=== PATIENT | female | born 1970 | race Caucasian/White ===

== ENCOUNTER 2016-04-20 21:24 | Emergency (ER) | payer BC ==
[2016-04-20 21:33] VITALS: TEMP 97.7
[2016-04-20] MEDS ORDERED: SODIUM CHLORIDE 0.9% 1,000 ML IV STA (21:44)
[2016-04-20] MEDS ORDERED: METOCLOPRAMIDE 5 MG/ML 2 ML VIAL IVP STA (21:44)
[2016-04-20] MEDS ORDERED: diphenhydrAMINE 50 MG/ML 1 ML VIAL IVP STA (21:44)
--- NOTE | 2016-04-20 21:45 | ED ---
Headache HPI - General Chief Complaint: Headache Stated Complaint: headache Time Seen by Provider: 04/20/16 21:36 Source: RN notes reviewed Mode of arrival: ambulatory Limitations: no limitations - History of Present Illness Initial Comments: 45-year-old female presents to the emergency department with a chief complaint of right-sided headache. Patient has a chronic headache she's had multiple MRI seen multiple specialists for headache. Patient states that she currently is out of her headache medication because she ran out and is unable to pay her balance to her doctor so he will not refill it. Patient states she just needs her headache improved and she just needs some refills of her medicine because she is unable to get them. Patient states she has a headache fever or chills. Patient states that like her chronic headache. Patient states that she has no other complaint at this time. Patient denies any recent fever, chills, shortness of breath, chest pain, back pain, abdominal pain, nausea vomiting, numbness or tingling, dysuria or hematuria, constipation or diarrhea, visual changes, or any other current symptoms. - Related Data Previous Rx's Medication Instructions Recorded Gabapentin [Neurontin] 300 mg PO BID #10 cap 04/20/16 Propranolol [Inderal] 20 mg PO TID #10 tab 04/20/16 SUMAtriptan SUCCINATE [Imitrex] 100 mg PO BID PRN #10 tablet 04/20/16 traMADol HCL [Ultram] 50 mg PO BID PRN #10 tablet 04/20/16 Allergies Allergy/AdvReac Type Severity Reaction Status Date / Time Sulfa (Sulfonamide Allergy Unknown Verified 04/20/16 21:39 Antibiotics) Childhood Review of Systems ROS Statement: Those systems with pertinent positive or pertinent negative responses have been documented in the HPI. ROS Other: All systems not noted in ROS Statement are negative. Past Medical History Additional Past Medical History / Comment(s): STATES WAS TOLD HAD SEIZURE CHILD, NOT SURE IF THEY WERE FEBRILE OR NOT. LIPOMA ON BACK History of Any Multi-Drug Resistant Organisms: None Reported Past Surgical History: Hysterectomy, Orthopedic Surgery Additional Past Surgical History / Comment(s): LEFT HAND SX Past Anesthesia/Blood Transfusion Reactions: No Reported Reaction Past Psychological History: Anxiety, Depression, Panic Disorder Smoking Status: Current every day smoker Past Alcohol Use History: None Reported Past Drug Use History: None Reported - Past Family History Mother Family Medical History: Deep Vein Thrombosis (DVT), Pulmonary Embolus Father Family Medical History: Cancer General Exam - General Exam Comments Initial Comments: General: The patient is awake and alert, in no distress, and does not appear acutely ill. Eye: Pupils are equal, round and reactive to light, extra-ocular movements are intact; there is normal conjunctiva bilaterally. No signs of icterus. Ears, nose, mouth and throat: There are moist mucous membranes and no oral lesions. Neck: The neck is supple, there is no tenderness. Cardiovascular: There is a regular rate and rhythm. No murmur, rub or gallop is appreciated. Respiratory: Lungs are clear to auscultation, respirations are non-labored, breath sounds are equal. No wheezes, stridor, rales, or rhonchi. Gastrointestinal: Soft, non-distended, non-tender abdomen without masses or organomegaly noted. There is no rebound or guarding present. No CVA tenderness. Bowel sounds are unremarkable. Back: There is no tenderness to palpation in the midline. There is no obvious deformity. No rashes noted. Musculoskeletal: Normal ROM, no tenderness, There is no pedal edema. There is no calf tenderness or swelling. Sensation intact. Pulses equal bilaterally 2+. Neurological: CN II-XII intact, There are no obvious motor or sensory deficits. Coordination appears grossly intact. Speech is normal. Skin: Skin is warm and dry and no rashes or lesions are noted. Psychiatric: Cooperative, appropriate mood & affect, normal judgment. Limitations: no limitations Course Vital Signs 04/20/16 21:30 Temperature 97.7 F Pulse Rate 67 Respiratory 20 Rate Blood Pressure 136/80 O2 Sat by Pulse 97 Oximetry Medical Decision Making - Medical Decision Making 45-year-old female presents to emergency Department chief complaint of headache. Patient is feeling better at this time. At this time we discussed that we will give her a short supply of her home medications. We did discuss follow-up with the doctor and return parameters. Patient is in agreement with this plan. All her questions have been answered. Patient will be discharged home. Disposition Clinical Impression: Headache Disposition: HOME SELF-CARE Condition: Stable Instructions: Acute Headache (ED) Additional Instructions: Please use medication as discussed. Please follow up with family doctor if symptoms have not improved over the next two days. Please return to the emergency room if your symptoms increase or worsen or for any other concerns. Prescriptions: Gabapentin [Neurontin] 300 mg PO BID #10 cap Propranolol [Inderal] 20 mg PO TID #10 tab SUMAtriptan SUCCINATE [Imitrex] 100 mg PO BID PRN #10 tablet PRN Reason: Migraine Headache traMADol HCL [Ultram] 50 mg PO BID PRN #10 tablet PRN Reason: Pain Referrals: Jackie Troncoso III, MD [Primary Care Provider] - 1-2 days Time of Disposition: 22:34
[2016-04-20 22:40] VITALS: BP 129/73; PULSE 64; RESP 16
== END 2016-04-20 22:44 | disposition home or self-care (01) ==
LOC: EC 21:24
DX: R51 Headache (principal); Z88.2 Allergy status to sulfonamides; Z79.899 Other long term (current) drug therapy; F17.200 Nicotine dependence, unspecified, uncomplicated; Z76.0 Encounter for issue of repeat prescription
CPT/HCPCS: 99283; 96374; 96375; 96361; J1200; J2765

== ENCOUNTER → 2016-05-04 | Outpatient (CLI) | payer BC ==
--- NOTE | 2016-05-04 11:19 | MR ---
MRI of the brain with and without contrast HISTORY: Headaches. TECHNIQUE: T1-weighted sagittal, T2, FLAIR, and diffusion axial, postcontrast T1 axial and coronal vi ews of the brain are submitted. CONTRAST: 15 mL MultiHance COMPARISON: 01/14/2015 FINDINGS: There is no evidence of acute ischemia. The ventricles, basal cisterns, and sulci overlying the co nvexities are consistent with the patient's age. There is no mass effect or enhancing mass. Craniocervical junction maintained. Sella turcica has a normal appearance. No cerebellopontine angle mass. Orbits have a normal appearance. There is normal enhancement of the vasculature including the dural v enous sinuses. There is mild chronic mastoiditis and sinusitis. WHITE MATTER: There are approximately 65-70 areas of focal abnormal signal scattered throughout the white matter of both cerebral hemispheres. Largest lesion measures approximately 7 mm in the right periatrial region . There are no enhancing lesions. There are no callosal lesions. No interval change in size or morphology or number from the previous exam. IMPRESSION: 1. No acute intracranial process. 2. Diffuse white matter changes are stable in size, number and morphology from the previous exam with no enhancing lesions. Findings are nonspecific could be seen with demyelinating process including a mass, Lyme's disease, vasculitis, sarcoidosis, or remote microvascular ischemia.
== END | disposition home or self-care (01) ==
LOC: RADMRIMAIN 09:56
PROVIDERS: ATTEND Family Medicine
DX: R90.89 Other abnormal findings on diagnostic imaging of central nervous system (principal)
CPT/HCPCS: 70553; A9577

== ENCOUNTER → 2016-05-05 | Outpatient (CLI) | payer BC ==
--- NOTE | 2016-05-05 19:47 | MR ---
Cervical and lumbar MRI with and without contrast HISTORY: Headaches, family history of multiple sclerosis, abnormal brain MRI Multiplanar multisequence and postcontrast images obtained through the cervical and lumbar spine foll owing 15 cc MultiHance IV Correlation to brain MRI 04 May 2016 Cervical spine MRI: Cervical vertebral bodies show preserved height, alignment, and bone marrow signa l. Cervical cord signal is maintained. Spondylosis is present at C6-7 with associated loss of disc he ight and signal, endplate discogenic marrow signal change and posterior extension of endplate disc co mplex causing anterior mass effect on the thecal sac and mild central canal stenosis. Uncovertebral j oint hypertrophy, facet arthropathy results in bilateral foraminal encroachment, correlate for right and left C7 radiculopathy. Nerve sheath diverticulum present on the left at C7-T1. There is no abnormal enhancement following contrast administration. IMPRESSION: Degenerative disc disease C6-7 Lumbar MRI: The conus is at T12-L1 shows an unremarkable appearance. There is no significant central canal stenosis, foraminal encroachment, or sizable disc herniation. There is a small posterior broad- based disc bulge present at T11-12 causing some anterior mass effect on the anterior thecal sac and p ossibly some contact with the distal cervical cord. Cortical cysts are noted incidentally within the kidneys. Hemangioma present within the T12 vertebral body. Facet arthropathy change present at L5-S1, L4-5 with hypertrophy of the ligamentum flavum causing rachid e posterior lateral mass effect on the thecal sac. There is no evident disc herniation. No abnormal e nhancement following contrast administration. IMPRESSION: Degenerative disc disease at the lower thoracic spine, facet arthropathy in the lower lum bar spine. Additional findings above.
== END | disposition home or self-care (01) ==
LOC: RADMRIMAIN 17:52
PROVIDERS: ATTEND Family Medicine
DX: M50.323 Other cervical disc degeneration at C6-C7 level (principal); M51.34 Other intervertebral disc degeneration, thoracic region; M46.96 Unspecified inflammatory spondylopathy, lumbar region
CPT/HCPCS: 72156; 72158; A9577

== ENCOUNTER → 2016-05-14 | Outpatient (CLI) | payer BC ==
--- NOTE | 2016-05-15 11:37 | MR ---
MR thoracic spine with and without contrast HISTORY: Family history of multiple sclerosis, back pain Multiplanar multisequence and postcontrast images through the thoracic spine following 16 cc MultiHan ce IV No comparisons Thoracic vertebral bodies show preserved height, alignment, and there is multilevel endplate discogen ic marrow signal change, endplate spondylosis with associated loss of disc height and signal is great est at the midthoracic spine. Thoracic cord signal is normal. Degenerative disc disease seen in the l ower cervical spine. Posterior extension of endplate disc complex at C6-7 causes mild central canal s tenosis, possibly anterior mass effect on the thecal sac and contact with the anterior cervical cord. No significant abnormal enhancement. Multiple cortical cysts associated with the kidneys. Suspect a hiatal hernia. T5-6 shows a central disc herniation posteriorly contacting the anterior thoracic cord. Question abno rmal soft tissue at the level of the left adrenal gland. T6-7: Right posterior paracentral disc herniation contacts the anterolateral thoracic cord. T7-8: Right posterior paracentral disc herniation causes mass effect on the anterior thoracic cord. T here is facet arthropathy. T11-T12: Left posterior paracentral disc herniation causes anterolateral mass effect on the thecal sa c IMPRESSION: Degenerative disc disease as described. Question left adrenal mass, consider dedicated im aging. Additional findings above.
== END | disposition home or self-care (01) ==
LOC: RADMRIMAIN 16:41
PROVIDERS: ATTEND Family Medicine
DX: M51.34 Other intervertebral disc degeneration, thoracic region (principal); Z82.69 Family history of other diseases of the musculoskeletal system and connective tissue
CPT/HCPCS: 72157; A9577

== ENCOUNTER → 2016-06-16 | Outpatient (CLI) | payer BC ==
[2016-06-16 17:57] LABS: Treponemal Ab Non-Reactive (Non-Reactive)
[2016-06-17 05:26] LABS: Complement Total (CH50) 183 CAE (54-144)
[2016-06-17 05:31] LABS: Lyme Antibodies Total(IgG/IgM) 0.02 (<0.90)
== END | disposition home or self-care (01) ==
LOC: LABWHC1 08:08
PROVIDERS: ATTEND Psychiatry & Neurology Neurology
DX: G37.9 Demyelinating disease of central nervous system, unspecified (principal)
CPT/HCPCS: 36415; 81241; 81291; 82164; 82607; 82746; 83090; 84207; 84439; 84443; 86160; 86162; 86235; 86618; 86780

== ENCOUNTER 2016-09-24 16:44 | Emergency (ER) | payer BC ==
[2016-09-24 17:02] VITALS: RESP 18
--- NOTE | 2016-09-24 17:41 | XR ---
EXAMINATION TYPE: XR knee complete LT DATE OF EXAM: 09/24/2016 COMPARISON: NONE HISTORY: Knee pain TECHNIQUE: 3 views FINDINGS: I see no fracture nor dislocation. There is a large knee joint effusion. Joint spaces are n ormal. IMPRESSION: Large joint effusion. No fracture seen.
--- NOTE | 2016-09-24 17:47 | ED ---
Lower Extremity Injury HPI - General Chief Complaint: Extremity Injury, Lower Stated Complaint: Knee Injury Time Seen by Provider: 09/24/16 17:03 Source: patient, EMS Mode of arrival: EMS Limitations: no limitations - Related Data Home Medications Medication Instructions Recorded Confirmed Gabapentin [Neurontin] 300 mg PO TID 09/24/16 09/24/16 Nortriptyline [Pamelor] 10 mg PO QID 09/24/16 09/24/16 Propranolol HCl 20 mg PO TID 09/24/16 09/24/16 Propranolol HCl [Propranolol HCl 60 mg PO HS 09/24/16 09/24/16 ER] Previous Rx's Medication Instructions Recorded HYDROcodone/APAP 5-325MG [[place] 1 tab PO Q6HR PRN #15 tab 09/24/16 5-325] Ibuprofen [Motrin] 800 mg PO TID #20 tab 09/24/16 Allergies Allergy/AdvReac Type Severity Reaction Status Date / Time Sulfa (Sulfonamide Allergy Unknown Verified 09/24/16 17:18 Antibiotics) Childhood Review of Systems ROS Statement: Those systems with pertinent positive or pertinent negative responses have been documented in the HPI. ROS Other: All systems not noted in ROS Statement are negative. Past Medical History Additional Past Medical History / Comment(s): STATES WAS TOLD HAD SEIZURE CHILD, NOT SURE IF THEY WERE FEBRILE OR NOT. LIPOMA ON BACK History of Any Multi-Drug Resistant Organisms: None Reported Past Surgical History: Hysterectomy, Orthopedic Surgery Additional Past Surgical History / Comment(s): LEFT HAND SX Past Anesthesia/Blood Transfusion Reactions: No Reported Reaction Past Psychological History: Anxiety, Depression, Panic Disorder Smoking Status: Current every day smoker Past Alcohol Use History: None Reported Past Drug Use History: None Reported - Past Family History Mother Family Medical History: Deep Vein Thrombosis (DVT), Pulmonary Embolus Father Family Medical History: Cancer General Exam Limitations: no limitations Course Vital Signs 09/24/16 16:56 Temperature 99.3 F Pulse Rate 75 Respiratory 18 Rate Blood Pressure 124/58 O2 Sat by Pulse 98 Oximetry Disposition Clinical Impression: Knee sprain Disposition: HOME SELF-CARE Condition: Good Instructions: Knee Sprain (ED) Additional Instructions: advised to follow-up with orthopedic physician. Patient needs to remain in knee immobilizer. Return to the emergency department if any alarming signs or symptoms occur. Prescriptions: HYDROcodone/APAP 5-325MG [[place] 5-325] 1 tab PO Q6HR PRN #15 tab PRN Reason: Pain Ibuprofen [Motrin] 800 mg PO TID #20 tab Referrals: Jackie Troncoso III, MD [Primary Care Provider] - 1-2 days Angel Caldera DO [Doctor of Osteopathic Medicine] - 1-2 days Time of Disposition: 17:46
[2016-09-24] MEDS ORDERED: HYDROcodone/APAP 10-325MG 1 EACH TAB PO ONE (17:48)
[2016-09-24 18:24] VITALS: BP 120/62; PULSE 76; TEMP 98.3
== END 2016-09-24 18:24 | disposition home or self-care (01) ==
LOC: EC 16:44
DX: S83.92XA Sprain of unspecified site of left knee, initial encounter (principal); F32.9 Major depressive disorder, single episode, unspecified; F41.9 Anxiety disorder, unspecified; F17.200 Nicotine dependence, unspecified, uncomplicated; Z79.899 Other long term (current) drug therapy; Z88.2 Allergy status to sulfonamides; Z86.69 Personal history of other diseases of the nervous system and sense organs; W22.8XXA Striking against or struck by other objects, initial encounter; Y93.89 Activity, other specified
CPT/HCPCS: 99283; 73562; L1830

== ENCOUNTER → 2017-02-16 | Outpatient (CLI) | payer BC ==
--- NOTE | 2017-02-16 16:42 | XR ---
EXAMINATION TYPE: XR chest 2V DATE OF EXAM: 02/16/2017 COMPARISON: 08/02/2012 HISTORY: Migraines. Chest pain. TECHNIQUE: Frontal and lateral views of the chest are obtained. FINDINGS: There is no heart failure nor confluent pneumonic infiltrate. Costophrenic angles are sonya r. Thoracic aorta is atheromatous. Bony thorax is intact. IMPRESSION: No active cardiopulmonary disease. No change.
== END | disposition home or self-care (01) ==
LOC: RADXRMAIN 16:14
PROVIDERS: ATTEND Family Medicine
DX: G43.701 Chronic migraine without aura, not intractable, with status migrainosus (principal)
CPT/HCPCS: 71020

== ENCOUNTER → 2017-03-26 | Outpatient (CLI) | payer BC ==
--- NOTE | 2017-03-26 16:24 | US ---
EXAMINATION TYPE: US kidneys/renal and bladder DATE OF EXAM: 03/26/2017 COMPARISON: MRI lumbar spine May 05, 2016 CLINICAL HISTORY: N28.1 Renal cyst. Renal cysts seen on MRI EXAM MEASUREMENTS: Right Kidney: 11.7 x 5.7 x 6.0 cm Left Kidney: 11.4 x 6.7 x 6.3 cm Right Kidney: Mixed lesion upper pole= 1.3 x 1.2 x 1.2 cm Left Kidney: Cyst mid/lateral= 1.3 x 1.2 x 0.9 cm Bladder: wnl Bilateral Jets seen: Yes There is no evidence for hydronephrosis at this point in time. No nephrolithiasis is seen. The urin remigio bladder is anechoic. Bilateral ureteral jets are seen. There is 1.3 cm felt likely thin septated cyst upper pole level right kidney reveals correlates with MRI axial image 33. There is 1.3 cm cyst with single thin septation laterally mid to lower pole level left kidney likely corresponds to lesion axial image 22. IMPRESSION: Some thin septated cysts in both kidneys confirmed. No concerning solid or cystic renal mass is prese nt bilaterally.
--- NOTE | 2017-03-29 09:30 | BD ---
EXAMINATION TYPE: MG DEXA axial skeleton. DATE OF EXAM: 03/26/2017 COMPARISON: NONE CLINICAL HISTORY: Osteoarthritis. Screening for osteoporosis. Height: 62 Weight: 184.3 FRAX RISK QUESTIONS: Alcohol (3 or more units per day): no Family History (Parent hip fracture): no Glucocorticoids (More than 3mos): no (Ex: prednisone, prednisolone, methylprednisolone, dexamethasone, and hydrocortisone). History of Fracture in Adulthood: yes Secondary Osteoporosis: 1. Type 1 Diabetes: no 2. Hyperthyroidism: no 3. Menopause before 45: yes 4. Malnutrition: no 5. Chronic liver disease: no Rheumatoid Arthritis: no Current Tobacco Use: yes RISK FACTORS HISTORY OF: Hip Fracture (Right/Left): no Spine Fracture: no History of Wrist Fracture: no Surgery to Spine/Hip(right/left)/Wrist (right/left): no Family History of Osteoporosis: yes Active: yes Diet low in dairy products/other sources of calcium: yes Postmenopausal woman: hysterectomy 25 years ago Lost more than 2 inches in height since high school: no Frequent falls: no Poor Health: yes Hyperparathyroidism: no Adrenal Insufficiency: no MEDICATIONS: nexium, topomax, norco Additional History: EXAM MEASUREMENTS: Bone mineral densitometry was performed using the [employer] System. Bone mineral density as measured about the Lumbar spine is: ----- L1-L4(G/cm2): 0.998 T Score Values are as follows: ----- L2: -1.5 ----- L3: -1.3 ----- L4: -2.3 ----- L1-L4: -1.5 Bone mineral density baseline Bone mineral density about the R hip (g/cm2): 1.002 Bone mineral density about the L hip (g/cm2): 0.904 T Score values are as follows: -----R Neck: -0.3 -----L Neck: -1.0 -----R Total: -0.8 -----L Total: -0.4 Bone mineral density baseline IMPRESSION: Osteopenia (T Score between -2.5 and -1) as noted by T score values with regards to the lumbar spine. There is slightly increased risk of fracture and the patient may be considered for treatment. Re-Screen 2-5 years. NOTE: T-SCORE=SD OF THE YOUNG ADULT MEAN.
== END | disposition home or self-care (01) ==
LOC: RADBDWWP 15:26
PROVIDERS: ATTEND Family Medicine
DX: N28.1 Cyst of kidney, acquired (principal); M85.88 Other specified disorders of bone density and structure, other site; M19.90 Unspecified osteoarthritis, unspecified site
CPT/HCPCS: 76770; 77080

== ENCOUNTER → 2017-08-30 | Outpatient (CLI) | payer BC ==
[~2017-08-30] MED LIST: SODIUM CHLORIDE 0.9% 500 ML in EMPTY BAG 1 BAG IV PRN; ZOLEDRONIC ACID 5 MG in SODIUM CHLORIDE 0.9% 100 ML IV NR
[2017-08-30 14:54] VITALS: BP 121/83; PULSE 64; RESP 14; TEMP 98.5
== END | disposition home or self-care (01) ==
LOC: PROCWHC3 14:31
PROVIDERS: ATTEND Family Medicine
DX: M81.0 Age-related osteoporosis without current pathological fracture (principal)
CPT/HCPCS: 96365; J3489

== ENCOUNTER → 2017-11-02 | Outpatient (CLI) | payer BC ==
--- NOTE | 2017-11-02 12:37 | MR ---
EXAMINATION TYPE: MR cspine/tspine/lspine wo con DATE OF EXAM: 11/02/2017 12:09 PM COMPARISON: May 05, 2016 HISTORY: Back pain Multiplanar MultiSpin echo imaging of the cervical spine was performed. Comparison: none C2-C3: No evidence for degenerative disc disease. No disc bulge/herniation or protrusion. No Canal stenosis. Foramina are patent bilaterally. C3-C4: No evidence for degenerative disc disease. No disc bulge/herniation or protrusion. No Canal stenosis. Foramina are patent bilaterally. C4-C5: Mild disc desiccation. Mild posterior disc bulge without evidence for raina herniation. No padmini dence for central stenosis or foraminal encroachment at this time. C5-C6: No evidence for degenerative disc disease. No disc bulge/herniation or protrusion. No Canal stenosis. Foramina are patent bilaterally. C6-C7: Moderate to severe disc desiccation. Posterocentral subligamentous disc herniation is redemons trated. Effacement ventral thecal sac and mild ventral cord contact with mild central stenosis. Early compressive myelopathy is difficult to exclude. Bilateral foraminal encroachment left greater than r ight. C7-T1: No evidence for degenerative disc disease. No disc bulge/herniation or protrusion. No Canal stenosis. Foramina are patent bilaterally. Cervical segments are intact. There is normal alignment. Craniovertebral junction relationships are within normal limits. IMPRESSION: 1. Degenerative disc disease as discussed. 2. Subligamentous disc herniation with ventral cord contact or central stenosis at C6-7 essentially u nchanged from prior examination. Early compressive myelopathy is difficult to exclude at this level. EXAMINATION TYPE: MR cliffine/tspine/lspine wo con DATE OF EXAM: 11/02/2017 12:09 PM COMPARISON: 05/14/2016 HISTORY: Back pain Multiplanar MultiSpin echo imaging of the thoracic spine was performed. Disc spaces: Moderate decreased signal ossified compatible disc desiccation T5-6, T6-7, T7-8 and T11- 12. Disc herniations at each of these levels being subligamentous at T5-T8. At the T11-T12 level ther e is extruded disc material noted posterior to the T11 segment measuring 1 cm in length. Ventral CORD contact at the T5-6, T6-7 and T7-8 components. Thoracic spinal cord: Thoracic spinal cord is of normal caliber and signal. Paraspinal soft tissues: No evidence for paraspinal mass. No destructive lesions seen. Vertebral segments: No evidence for fracture or bony lesion. Scattered ventral spondylosis. IMPRESSION: 1. Multiple disc herniations as discussed above with ventral cord contact at several levels with bord leandra central stenosis. EXAMINATION TYPE: MR cspine/tspine/lspine wo con DATE OF EXAM: 11/02/2017 12:09 PM COMPARISON: 05/05/2016 HISTORY: Back pain Multiplanar, MultiSpin echo imaging of the lumbar spine was performed. L1-L2: Normal disc appearance without desiccation. No herniation, protrusion or disc bulging. No ca nal stenosis is present. Foramina are patent bilaterally. L2-L3: Normal disc appearance without desiccation. No herniation, protrusion or disc bulging. No ca nal stenosis is present. Foramina are patent bilaterally. L3-L4: Normal disc appearance without desiccation. No herniation, protrusion or disc bulging. No ca nal stenosis is present. Foramina are patent bilaterally. L4-L5: Mild disc desiccation mild posterior disc bulge. No herniation protrusion or central stenosis. L5-S1: Normal disc appearance without desiccation. No herniation, protrusion or disc bulging. No ca nal stenosis is present. Foramina are patent bilaterally. Lumbar segments are intact. Mild facet joint arthropathy lower lumbar spine. No paraspinal masses are identified. Conus medullaris has a normal appearance. IMPRESSION: 1. Mild degenerative disc disease at L4-5.
== END | disposition home or self-care (01) ==
LOC: RADMRIMAIN 10:57
PROVIDERS: ATTEND Family Medicine
DX: M48.04 Spinal stenosis, thoracic region (principal); M51.24 Other intervertebral disc displacement, thoracic region; M51.16 Intervertebral disc disorders with radiculopathy, lumbar region; M50.223 Other cervical disc displacement at C6-C7 level
CPT/HCPCS: 72141; 72146; 72148

== ENCOUNTER → 2019-01-24 | Outpatient (CLI) | payer BC | END | disposition home or self-care (01) | LOC: PROCWHC3 12:38 | PROVIDERS: ATTEND Family Medicine | DX: Z53.9 Procedure and treatment not carried out, unspecified reason (principal) ==

== ENCOUNTER → 2019-04-13 | Outpatient (CLI) | payer BC ==
[~2019-04-13] MED LIST changes: +SODIUM CHLORIDE 0.9% 500 ML 500 ML in EMPTY BAG 1 BAG IV PRN; -SODIUM CHLORIDE 0.9% 500 ML in EMPTY BAG 1 BAG IV PRN
[2019-04-13 13:31] VITALS: BP 120/77; PULSE 74; RESP 18; TEMP 98
== END | disposition home or self-care (01) ==
LOC: PROCWHC3 13:17
PROVIDERS: ATTEND Family Medicine
DX: M81.0 Age-related osteoporosis without current pathological fracture (principal)
CPT/HCPCS: 96365; J3489

== ENCOUNTER 2019-04-27 03:50 | Emergency (ER) | payer BC, OTHER ==
[2019-04-27 03:58] VITALS: RESP 18
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
[2019-04-27 05:02] VITALS: BP 134/99; PULSE 88; TEMP 98
== END 2019-04-27 05:07 | disposition home or self-care (01) ==
LOC: EC 03:50
DX: S00.03XA Contusion of scalp, initial encounter (principal); K21.9 Gastro-esophageal reflux disease without esophagitis; F17.200 Nicotine dependence, unspecified, uncomplicated; Z88.2 Allergy status to sulfonamides; Z88.8 Allergy status to other drugs, medicaments and biological substances; Z79.899 Other long term (current) drug therapy; Z86.69 Personal history of other diseases of the nervous system and sense organs; V58.5XXA Driver of pick-up truck or van injured in noncollision transport accident in traffic accident, initial encounter; Y92.410 Unspecified street and highway as the place of occurrence of the external cause
CPT/HCPCS: 70450; 72125; 99284

== ENCOUNTER → 2020-02-02 | Outpatient (CLI) | payer BC, OTHER | END | disposition home or self-care (01) | LOC: LABWHC1 12:50 | PROVIDERS: ATTEND Family Medicine | DX: Z20.828 Contact with and (suspected) exposure to other viral communicable diseases (principal) | CPT/HCPCS: U0003; C9803 ==

== ENCOUNTER 2020-02-17 12:51 | Emergency (ER) | payer BC ==
[2020-02-17 13:04] VITALS: RESP 18; TEMP 98.2
--- NOTE | 2020-02-17 13:46 | XR ---
EXAMINATION TYPE: XR chest 2V DATE OF EXAM: 02/17/2020 CLINICAL HISTORY: Chest pain. TECHNIQUE: Frontal and lateral views of the chest are obtained. COMPARISON: Chest x-ray January 27, 2018 FINDINGS: There is mild chronic parenchymal changes bilaterally without suspicious new focal air spa ce opacity, pleural effusion, or pneumothorax seen. The cardiac silhouette size remains within darci l limits. The osseous structures are intact. Overlying EKG leads are redemonstrated. IMPRESSION: No acute cardiopulmonary process. No significant change from prior.
[2020-02-17 13:49] LABS: Basophils # (A) 0.1 k/uL (0-0.2); Basophils % (A) 1 %; Eosinophils # (A) 0.1 k/uL (0-0.7); Eosinophils % (A) 1 %; HGB 16.2 gm/dL (11.4-16.0); Lymphocytes # (A) 1.9 k/uL (1.0-4.8); Lymphocytes % (A) 23 %; MCHC 33.8 g/dL (31.0-37.0); MCV 97.8 fL (80.0-100.0); Mean Platelet Volume 7.5; Monocytes # (A) 0.5 k/uL (0-1.0); Monocytes % (A) 5 %; Neutrophils # (A) 5.9 k/uL (1.3-7.7); Neutrophils % (A) 68 %; Platelet Count 254 k/uL (150-450); RBC 4.91 m/uL (3.80-5.40); RDW 12.5 % (11.5-15.5); WBC 8.6 k/uL (3.8-10.6)
[2020-02-17 14:01] LABS: ALT 15 U/L (4-34); AST 22 U/L (14-36); African American GFR (CKD) >90 (>60 ml/min/1.73 sqM); Albumin 4.6 g/dL (3.5-5.0); Alkaline Phosphatase 76 U/L (38-126); Anion Gap 6 mmol/L; Blood Urea Nitrogen 21 mg/dL (7-17); Calcium 9.9 mg/dL (8.4-10.2); Carbon Dioxide 26 mmol/L (22-30); Chloride 107 mmol/L (98-107); Glucose 94 mg/dL (74-99); Lipase 111 U/L (23-300); Magnesium 2.2 mg/dL (1.6-2.3); Non-African American GFR(CKD) >90 (>60 ml/min/1.73 sqM); Sodium 139 mmol/L (137-145); Total Bilirubin 0.4 mg/dL (0.2-1.3); Total Protein 7.6 g/dL (6.3-8.2)
[2020-02-17 14:05] LABS: INR 0.9 (<1.2); Partial Thromboplastin Time 23.2 sec (22.0-30.0); Prothrombin Time 9.9 sec (9.0-12.0)
--- NOTE | 2020-02-17 14:24 | ED ---
Chest Pain HPI - General Chief Complaint: Chest Pain Stated Complaint: Chest Pain Source: patient, EMS Mode of arrival: EMS Limitations: no limitations - History of Present Illness Initial Comments: Patient is a 49-year-old female with past medical history of hypertension, [place] who presents to emergency room with reported chest pain. Patient states that she was attempting to blow dry her hair this morning when she had sudden onset of chest pressure. States that there was no provocative factors. It lasted for approximately 15 minutes and then she called EMS. By the time EMS got to the house and began to subside. States she had associated diaphoresis and nausea. Patient has had a previous heart attack before. Denies ever having a cardiac cath. Denies ripping or tearing sensation to her back. No fevers, chills or cough. Patient was given a full dose aspirin en route to the hospital. States her pain is completely resolved at this time. Other alleviating, precipitating or modifying factors - Related Data Home Medications Medication Instructions Recorded Confirmed HYDROcodone/APAP 10-325MG [[place] 1 tab PO QID PRN 01/26/18 02/17/20 10-325] Topiramate [Topamax] 50 mg PO DAILY 01/26/18 02/17/20 Calcium Carbonate [Calcium] 600 mg PO DAILY 02/17/20 02/17/20 Cholecalciferol [Vitamin D3 (25 2,000 unit PO DAILY 02/17/20 02/17/20 Mcg = 1000 Iu)] Ibuprofen [Motrin] 400 mg PO BID PRN 02/17/20 02/17/20 Omeprazole 40 mg PO DAILY 02/17/20 02/17/20 Allergies Allergy/AdvReac Type Severity Reaction Status Date / Time Sulfa (Sulfonamide Allergy Unknown Verified 04/13/19 13:21 Antibiotics) Childhood UNKNOWN STOMACH MEDICATION Allergy Severe Anaphylaxis Uncoded 02/17/20 14:22 Review of Systems ROS Statement: Those systems with pertinent positive or pertinent negative responses have been documented in the HPI. ROS Other: All systems not noted in ROS Statement are negative. EKG Findings - EKG Comments: EKG Findings:: EKG demonstrates normal sinus rhythm with a ventricular rate of 62. [place] interva 158. QRS 80. QTC 440. No acute ST segment elevation or depressions concerning for ischemic changes Past Medical History Past Medical History: GERD/Reflux, Hypertension Additional Past Medical History / Comment(s): STATES WAS TOLD HAD SEIZURE CHILD, NOT SURE IF THEY WERE FEBRILE OR NOT. LIPOMA ON BACK, migraines, neck and back pain History of Any Multi-Drug Resistant Organisms: None Reported Past Surgical History: Hysterectomy, Orthopedic Surgery Additional Past Surgical History / Comment(s): LEFT HAND SX Past Anesthesia/Blood Transfusion Reactions: No Reported Reaction Past Psychological History: Anxiety, Depression, Panic Disorder Smoking Status: Current every day smoker Past Alcohol Use History: Occasional Past Drug Use History: None Reported - Past Family History Mother Family Medical History: Deep Vein Thrombosis (DVT), Pulmonary Embolus Father Family Medical History: Cancer General Exam Limitations: no limitations Course Vital Signs 02/17/20 02/17/20 02/17/20 13:00 13:32 13:54 Temperature 98.2 F Pulse Rate 74 64 Pulse Rate [ 74 Materials Tech ] Respiratory 18 18 Rate Blood Pressure 131/80 116/69 O2 Sat by Pulse 100 Oximetry 02/17/20 15:52 Temperature Pulse Rate 61 Pulse Rate [ Materials Tech ] Respiratory 18 Rate Blood Pressure 121/82 O2 Sat by Pulse 99 Oximetry Chest Pain MDM - MDM Upon arrival patient is placed into room 3. A thorough history and physical exam was performed. IV is established. Laboratory studies were conducted. Chest x-rays performed. Lab studies demonstrated a negative d-dimer. Troponin is negative. Chest x-ray demonstrates no acute cardiopulmonary process. Results are discussed the patient. Did recommend overnight observation order to trend the patient's troponins however she refused. Patient did agree to a second troponin. Results are reviewed and are negative. Patient will be discharged home at this time. Recommend follow up with her primary care doctor within 1-2 days. If she has any new or worsening symptoms or does a great hospital admission she should return to the emergency room. Patient was discharged home in stable condition Disposition Clinical Impression: Chest pain Disposition: HOME SELF-CARE Condition: Stable Instructions (If sedation given, give patient instructions): Chest Pain (ED) Additional Instructions: I recommended hospital admission. Follow-up with your primary care doctor in 2- 4 days. Return to the emergency room for any new or worsening symptoms Is patient prescribed a controlled substance at d/c from ED?: No Referrals: Spencer Harper DO [Primary Care Provider] - 1-2 days Time of Disposition: 16:06
[2020-02-17 16:47] VITALS: BP 123/81; PULSE 63
== END 2020-02-17 16:48 | disposition home or self-care (01) ==
LOC: EC 12:51
DX: R07.9 Chest pain, unspecified (principal); R11.0 Nausea; R61 Generalized hyperhidrosis; K21.9 Gastro-esophageal reflux disease without esophagitis; F17.200 Nicotine dependence, unspecified, uncomplicated; Z79.899 Other long term (current) drug therapy; Z88.2 Allergy status to sulfonamides; Z90.710 Acquired absence of both cervix and uterus; Z86.69 Personal history of other diseases of the nervous system and sense organs
CPT/HCPCS: 36415; 71046; 80053; 83690; 83735; 83880; 84484; 85025; 85379; 85610; 85730; 93005; 99285

== ENCOUNTER 2020-05-26 18:20 | Emergency (ER) | payer BC ==
[2020-05-26 18:33] VITALS: BP 137/76; PULSE 68; RESP 16; TEMP 97.9
[2020-05-26] MEDS ORDERED: HYDROmorphone 0.5 MG/0.5 ML SYRINGE IM STA (19:14)
[2020-05-26] MEDS ORDERED: predniSONE 50 MG TAB PO STA (19:14)
--- NOTE | 2020-05-26 19:53 | XR ---
Thoracic spine HISTORY: Chronic back pain. COMPARISON: None. TECHNIQUE: 3 views of thoracic spine were obtained. FINDINGS: Paraspinal soft tissues are normal. The thoracic vertebral segments are normal in height and alignment and there is no fracture or sublux ation. There is mild disc space narrowing in the midthoracic spine with mild anterior spondylosis ind icating mild degenerative disc disease. IMPRESSION: Mild degenerative disc disease in the mid thoracic spine with no other significant abnormality seen.
--- NOTE | 2020-05-26 19:55 | XR ---
Lumbar spine. HISTORY: Chronic back pain. COMPARISON: None. TECHNIQUE: 3 views of the lumbar spine were obtained. FINDINGS: The lumbar vertebral segments are normal in height and alignment and there is no fracture or subluxat ion. The disc spaces are well-maintained. Significant facet joint diffuse calcification of down. IMPRESSION: No significant seen in the lumbar spine.
--- NOTE | 2020-05-26 20:02 | ED ---
Back Pain HPI - General Chief Complaint: Back Pain/Injury Stated Complaint: back pain Time Seen by Provider: 05/26/20 19:00 Source: patient Limitations: no limitations - History of Present Illness Initial Comments: 49-year-old female with history of cervical disc herniations, lumbar disc disease times greater than 2 years currently on Flexeril, [place], lidocaine patches topically for chronic pain presenting today for chief complaint of worsening pain. Patient states that she has had neck pain for quite sometime now and they have discussed possible fusion. Patient states that the pain in the neck and the low back are so bad at times it causes her to stumble/fall. She states this happened twice today. Patient states that she didnt fall today but stumbled and caught self x 2> Denies head injury, neck injury, denies extremity injury. She denies fevers IV drug use history of cancer she denies any loss of bowel bladder control upper or lower extremity weakness sensation deficits of the upper lower extremity. Patient denies urinary retention. Patient has no additional complaints upon arrival she appears well nontoxic distress she is ambulatory without difficulty. - Related Data Home Medications Medication Instructions Recorded Confirmed HYDROcodone/APAP 10-325MG [[place] 1 tab PO QID PRN 01/26/18 02/17/20 10-325] Topiramate [Topamax] 50 mg PO DAILY 01/26/18 02/17/20 Calcium Carbonate [Calcium] 600 mg PO DAILY 02/17/20 02/17/20 Cholecalciferol [Vitamin D3 (25 2,000 unit PO DAILY 02/17/20 02/17/20 Mcg = 1000 Iu)] Ibuprofen [Motrin] 400 mg PO BID PRN 02/17/20 02/17/20 Omeprazole 40 mg PO DAILY 02/17/20 02/17/20 Allergies Allergy/AdvReac Type Severity Reaction Status Date / Time Sulfa (Sulfonamide Allergy Unknown Verified 05/26/20 18:33 Antibiotics) Childhood UNKNOWN STOMACH MEDICATION Allergy Severe Anaphylaxis Uncoded 05/26/20 18:33 Review of Systems ROS Statement: Those systems with pertinent positive or pertinent negative responses have been documented in the HPI. ROS Other: All systems not noted in ROS Statement are negative. Past Medical History Past Medical History: GERD/Reflux, Hypertension Additional Past Medical History / Comment(s): STATES WAS TOLD HAD SEIZURE CHILD, NOT SURE IF THEY WERE FEBRILE OR NOT. LIPOMA ON BACK, migraines, neck and back pain History of Any Multi-Drug Resistant Organisms: None Reported Past Surgical History: Hysterectomy, Orthopedic Surgery Additional Past Surgical History / Comment(s): LEFT HAND SX Past Anesthesia/Blood Transfusion Reactions: No Reported Reaction Past Psychological History: Anxiety, Depression, Panic Disorder Smoking Status: Current every day smoker Past Alcohol Use History: Occasional Past Drug Use History: None Reported - Past Family History Mother Family Medical History: Deep Vein Thrombosis (DVT), Pulmonary Embolus Father Family Medical History: Cancer General Exam - General Exam Comments Initial Comments: General: The patient is awake and alert, in no distress Eye: +3 mm pupils are equal, round and reactive to light, extra-ocular movements are intact. No nystagmus. There is normal conjunctiva bilaterally. No signs of icterus. Ears, nose, mouth and throat: There are moist mucous membranes and no oral lesions. Neck: The neck is supple, there is no tenderness or JVD. No midline tenderness to patient of the cervical spine some mild paraspinal tenderness. Full range of motion. Cardiovascular: There is a regular rate and rhythm. No murmur, rub or gallop is appreciated. Respiratory: Lungs are clear to auscultation, respirations are non-labored, breath sounds are equal. No wheezes, stridor, rales, or rhonchi. Gastrointestinal: Soft, non-distended, non-tender abdomen without masses or organomegaly noted. There is no rebound or guarding present. Musculoskeletal: Normal inspection of the cervical thoracic and lumbar spine there is some palpated kyphosis of the thoracic spine. Patient has positive right-sided straight leg raise. Patient is full sensation as well strength of the lower extremities equal and comparison bilaterally including full sensation in the saddle region. Patient is able to heel and toe walk. With full strength. No falling. Radial and DP pulses equal bilaterally 2+. Neurological: A&O x 3. CN II-XII intact grossly, There are no obvious motor or sensory deficits. Coordination appears grossly intact. Speech is normal. Skin: Skin is warm and dry and no rashes or lesions are noted. Psychiatric: Cooperative, appropriate mood & affect, normal judgment. Limitations: no limitations Course Vital Signs 05/26/20 18:29 Temperature 97.9 F Pulse Rate 68 Respiratory 16 Rate Blood Pressure 137/76 O2 Sat by Pulse 98 Oximetry Medical Decision Making - Medical Decision Making XR no acute osseous process. Denies direct trauma or fall to the ground. Patient is neurovascularly intact on examination she is able to heel and toe walk ambulate. Strength of the upper and lower extremities without sensation deficits. Patient states overall his pain is chronic slightly worse the past 2 days. Patient wanted a new MRI. I discussed importance of outpatient MRI however no indication of emergent MRI at this time. No signs of neurovascular compromise. Patient is agreeable to this care plan. pain significantly improved after IM dose of dilaudid. Patient has home medications. Provided both orthopedic spine and neurosurgery follow-up--patient is agreeable to this care plan and discharge as well Dr. Lott who is agreeable to this care plan and discharge. Disposition Clinical Impression: Chronic neck and back pain Disposition: HOME SELF-CARE Condition: Good Instructions (If sedation given, give patient instructions): Chronic Pain (ED) Additional Instructions: Please use medication as discussed. Please follow-up with orthopedic spine or neurosurgery in the next 2-3 days. Please return to emergency room if the symptoms increase or worsen or for any other concerns. Is patient prescribed a controlled substance at d/c from ED?: No Referrals: Spencer Harper DO [Primary Care Provider] - 1-2 days Jefferson Whitfield DO [Doctor of Osteopathic Medicine] - 1-2 days Brady Lowe DO [Doctor of Osteopathic Medicine] - 1-2 days José Luis Solano MD [STAFF PHYSICIAN] - 1-2 days Time of Disposition: 20:18
== END 2020-05-26 20:40 | disposition home or self-care (01) ==
LOC: EC 18:20 → SUPCPDRO 18:20 → EC 20:40
DX: M54.2 Cervicalgia (principal); I10 Essential (primary) hypertension; K21.9 Gastro-esophageal reflux disease without esophagitis; F32.9 Major depressive disorder, single episode, unspecified; F17.200 Nicotine dependence, unspecified, uncomplicated; Z90.710 Acquired absence of both cervix and uterus
CPT/HCPCS: 72072; 72100; 99283; 96372; J7512; J1170

== ENCOUNTER → 2020-06-17 | Outpatient (CLI) | payer BC ==
--- NOTE | 2020-06-17 22:52 | MR ---
MRI CERVICAL SPINE: CLINICAL HISTORY: Headache, neck pain, right upper extremity weakness. Spondylosis and radiculopathy per order. TECHNIQUE: Multiplanar, multisequence imaging of the cervical spine is performed without IV contrast. COMPARISON: MRI cervical spine November 02, 2017. CT cervical spine April 27, 2019. FINDINGS: Sagittal images of the cervical spine show the craniocervical junction to remain within nor mal limits. The cervical and upper thoracic spinal cord remains normal in caliber and signal. Verte bral alignment is stable with slight grade 1 retrolisthesis C6 on C7. Mild to moderate disc space chuy rowing and spurring C6-C7 level otherwise the vertebral body and intravertebral disk heights are norm al. The bone marrow signal intensity is within normal limits. Axial images show C2-C3 and C3-C4 levels to remain within normal limits. Axial images at C4-C5 level shows mild broad-based posterior disc protrusion mildly effacing the ante rior thecal sac with mild bilateral neural foraminal narrowing. No significant change from prior MRI. Axial images at C5-C6 level though uncovertebral facet degenerative changes bilaterally greater on th e right but patent bilateral neural foramina. Axial images at C6-C7 levels redemonstrate spondylolisthesis with broad-based posterior disc protrusi on effacing the anterior thecal sac and causing moderate to advanced left and mild to moderate right- sided neural foraminal narrowing. No significant change from prior MRI. Axial images at C7-T1 level remain within normal limits. IMPRESSION: Multilevel degenerative changes with greatest findings at C6-C7 level. No significant chapo nge or progression from prior MRI.
== END | disposition home or self-care (01) ==
LOC: RADMRIMAIN 20:48
PROVIDERS: ATTEND Family Medicine
DX: M50.123 Cervical disc disorder at C6-C7 level with radiculopathy (principal); M43.12 Spondylolisthesis, cervical region; M99.71 Connective tissue and disc stenosis of intervertebral foramina of cervical region
CPT/HCPCS: 72141

== ENCOUNTER → 2020-06-26 | Outpatient (CLI) | payer BC ==
--- NOTE | 2020-06-26 10:17 | MR ---
EXAMINATION TYPE: MR lumbar spine wo con DATE OF EXAM: 06/26/2020 COMPARISON: 11/02/2017 HISTORY: Back pain, hurts to stand, walk or sit. Goes down right leg. TECHNIQUE: T1 and T2 axial and sagittal images of the lumbar spine are submitted. FINDINGS: There is no abnormal signal seen within the visualized spinal cord or paraspinal soft tissu es. There is soft tissue signal within the left adrenal gland measuring 2.6 cm. Additional right adre nal nodule 1.7 cm. Simple cyst left kidney At L1-2 there is no disc herniation or canal stenosis. No foraminal encroachment. At L2-3 there is no disc herniation or canal stenosis. No foraminal encroachment. Mild facet arthropa thy. At L3-4 there is no disc herniation or canal stenosis. Broad-based disc bulging with ligamentum flavu m and facet hypertrophy. Neural foramina patent. Mild effacement of thecal sac. At L4-5 there is degenerative disc disease with facet arthropathy and ligamentum flavum hypertrophy. Broad-based disc bulging. Neural foramina patent. Mild effacement of thecal sac. At L5-S1 there is facet arthropathy. No disc herniation or canal stenosis. No foraminal encroachment. Incidental note is made of moderate degenerative disc disease T11-T12 with vertebral body hemangioma of T11 IMPRESSION: 1. Broad-based disc bulging with hypertrophic change of the facets and ligamentum flavum L3-4 and L4- 5. Mild effacement of thecal sac. No discrete herniation or canal stenosis. 2. Bilateral adrenal masses recommend follow-up CT scan of the abdomen. 3. There is a disc sagittal protrusion or herniation not included on the axial images at T11-T12 whic h is been reported on prior exam. 4. Mild degenerative disc disease L4-L5.
== END | disposition home or self-care (01) ==
LOC: RADMRIMAIN 09:33
PROVIDERS: ATTEND Family Medicine
DX: M51.26 Other intervertebral disc displacement, lumbar region (principal); M51.36 Other intervertebral disc degeneration, lumbar region; E27.8 Other specified disorders of adrenal gland
CPT/HCPCS: 72148

== ENCOUNTER → 2020-07-26 | Outpatient (CLI) | payer BC | END | disposition home or self-care (01) | LOC: RADMRIMAIN 06:43 | PROVIDERS: ATTEND Orthopaedic Surgery | DX: Z53.9 Procedure and treatment not carried out, unspecified reason (principal) ==

== ENCOUNTER → 2020-07-29 | Outpatient (CLI) | payer BC ==
--- NOTE | 2020-08-02 04:25 | MR ---
EXAMINATION TYPE: MR hip RT wo/w con DATE OF EXAM: 07/29/2020 COMPARISON: None HISTORY: R hip pain, soft tissue calcification, limited movement CONTRAST: Standard multiplanar, multisequence MRI departmental protocol utilizing 7 mL intravenous Gadavist betito olinium contrast. The pelvic ring appears intact. There is no evidence of hip dysplasia. There is normal signal pattern in the femoral heads. There is no sign of avascular necrosis. There is no evidence of any significan t hip joint effusion. There is increased fluid signal which is somewhat lobulated in the lateral aspe ct of the right femoral neck. On the T1 coronal images there appears to be a vertical fracture line t hrough the lateral aspect of the right femoral neck. There is no evidence of a soft tissue mass. I se e no definite pathologic enhancement. IMPRESSION: There are findings suspicious for a nondisplaced vertical fracture of the lateral aspect of the right femoral neck.
== END | disposition home or self-care (01) ==
LOC: RADMRIMAIN 08:31
PROVIDERS: ATTEND Orthopaedic Surgery
DX: M25.551 Pain in right hip (principal)
CPT/HCPCS: 73723; A9585

== ENCOUNTER → 2020-08-01 | Outpatient (CLI) | payer BC ==
--- NOTE | 2020-08-01 23:17 | CT ---
EXAMINATION TYPE: CT abdomen wo/w con DATE OF EXAM: 08/01/2020 COMPARISON: None HISTORY: MRI findings-Bilateral adrenal mass. CT DLP: 1114 mGycm Automated exposure control for dose reduction was used. CONTRAST: Performed with IV Contrast, patient injected with 100 mL of Isovue 300. Images obtained from the diaphragm to the iliac crests without and with IV contrast. There is mild interstitial density and subsegmental atelectasis at the lung bases. Heart size is norm al. There is no pericardial effusion. There is no pleural effusion. Liver spleen stomach pancreas gallbladder appear intact. The bile ducts are not dilated. There is 1 c m cyst in the inferior right lobe of the liver. There is lobulated 4 cm left adrenal mass which has fairly low attenuation. There is a similar 1.8 cm low-attenuation rounded right adrenal mass. The left adrenal mass shows some small internal septatio ns. There are multiple bilateral renal calculi that measure up to 5 mm. There is no hydronephrosis. The u reters are not dilated. There is no retroperitoneal adenopathy. There is no mesenteric edema. There is no ascites or free air. There is no sign of a bowel obstructio n. Delayed images show normal renal excretion. Abdominal aorta is atheromatous. The lumbar vertebra h ave normal alignment. There is no compression fracture. IMPRESSION: Bilateral adrenal masses. These have density of -10 which is consistent with significant fat componen t and benign disease. Nonobstructing multiple bilateral renal calculi. Small hepatic cyst.
== END | disposition home or self-care (01) ==
LOC: RADCTMAIN 17:08
PROVIDERS: ATTEND Family Medicine
DX: E27.9 Disorder of adrenal gland, unspecified (principal); K76.89 Other specified diseases of liver; N20.0 Calculus of kidney
CPT/HCPCS: 74170

== ENCOUNTER → 2021-03-27 | Outpatient (CLI) | payer BC ==
--- NOTE | 2021-03-27 16:26 | XR ---
EXAMINATION TYPE: XR chest 2V DATE OF EXAM: 03/27/2021 COMPARISON: Chest x-ray February 17, 2020 HISTORY: Adrenal mass. TECHNIQUE: Frontal and lateral views of the chest are obtained. FINDINGS: There is no suspicious new focal air space opacity, pleural effusion, or pneumothorax seen . The cardiac silhouette size is stable and within normal limits. Atherosclerotic change aortic knob redemonstrated. The osseous structures are intact. Overlying bra strap is seen on current study. IMPRESSION: No acute cardiopulmonary process. No significant change from prior.
--- NOTE | 2021-03-28 12:42 | MR ---
MRI kidney with and without contrast HISTORY: Bilateral adrenal mass Multiplanar multisequence and postcontrast images obtained through the abdomen following 7 cc Gadavis t IV. Correlation to prior CT scan 08/01/2020, prior lumbar MRI dated 11/02/2017, 05/05/2016 The lobular mass associated with the left adrenal gland shows signal drop on out of phase imaging. Le janice was noted on prior lumbar MRI is. Similarly, the mass associated with the right adrenal gland sh ows signal drop on out of phase imaging, has been noted on previous MRIs dating to 05/05/2016. Enhancement following contrast administration is noted within the renal masses. This is an expected f inding in adrenal adenomas. Lung bases show no effusion. Focus of hyperintensity and T1 weighted sequences within the right kidn ey is subcentimeter and may represent a small proteinaceous cyst. There is no retroperitoneal adenopa thy. The aorta shows an unremarkable appearance. Gallbladder and liver are within normal limits. Sple en is unremarkable. Pancreas is normal. IMPRESSION: Benign adrenal masses consistent with adenomas.
== END | disposition home or self-care (01) ==
LOC: RADMRIMAIN 14:22
PROVIDERS: ATTEND Family Medicine
DX: E27.8 Other specified disorders of adrenal gland (principal)
CPT/HCPCS: 71046; 74183; A9585

== ENCOUNTER → 2022-09-03 | Outpatient (CLI) | payer BC ==
--- NOTE | 2022-09-03 08:35 | US ---
EXAMINATION TYPE: US abdomen complete DATE OF EXAM: 09/03/2022 COMPARISON: CLINICAL INDICATION: Female, 51 years old with history of Z87.440 PERSONAL HISTORY OF URINARY (TRACT) INFECT; Patient states having frequent UTI's and back pain. Complete abdomen per order. TECHNIQUE: Multiple sonographic images of the abdomen are obtained. FINDINGS: EXAM MEASUREMENTS: Liver Length: 18.3 cm Gallbladder Wall: 0.2 cm CBD: 0.4 cm Spleen: 9.2 cm Right Kidney: 11.0 x 6.1 x 5.5 cm Left Kidney: 11.2 x 4.9 x 5.8 cm Pancreas: wnl Liver: right lobe cystic lesion - Gallbladder: No stones, sludge or wall thickening Evidence for sonographic Angel's sign: neg CBD: wnl Spleen: wnl Right Kidney: lateral mid echogenic lesion - 0.9 x 1.1 x 0.9 cm Left Kidney: Multiple nonobstructing echogenic foci with largest = 0.6 cm Upper IVC: wnl Abd Aorta: No AAA visualized at time of scan The liver is homogenous. The intrahepatic portion of the IVC and proximal abdominal aorta are within normal limits. There is no evidence of cholelithiasis. Common bile duct is unremarkable. The visu alized portions of the pancreas are homogenous. The spleen is unremarkable. Kidneys are symmetric a nd free of hydronephrosis. IMPRESSION: 1. Nonobstructing left-sided nephrolithiasis. 2. 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
== END | disposition home or self-care (01) ==
LOC: RADUSWWP 07:22
PROVIDERS: ATTEND Family Medicine
DX: N20.0 Calculus of kidney (principal); Z87.440 Personal history of urinary (tract) infections
CPT/HCPCS: 76700